=== PATIENT | female | born 1930 | race Caucasian/White ===

== ENCOUNTER 2019-08-26 17:57 | Inpatient (IN) | payer OTHER, BC ==
[~2019-08-26] VITALS: Ht 170.2 cm; Wt 56.9 kg
[~2019-08-26 17:57] MED LIST: ASPIRIN EC81 M1 PO; ATIVAN0.5 MG; ATIVAN0.5 MG PO; BAYER; CELEXA 10 MG TA10 M1 PO; LEVOTHROID PO; LOPRESSOR; LOPRESSOR25 PO; MAXZIDE; POTASSIUM20; SYNTHROID; [UNRECOGNIZED DRUG - OTHER]
[2019-08-26 17:59] VITALS: BP 152/77
[2019-08-26] MEDS ORDERED: CELEXA 10 MG TA10 M1 PO (18:21)
[2019-08-26] MEDS ORDERED: ELIQUIS2.5 MG PO (18:21)
[2019-08-26] MEDS ORDERED: DIBUCAINE30 GM TOP (18:21)
[2019-08-26] MEDS ORDERED: TYLENOL325 MG PO (18:21)
[2019-08-26] MEDS ORDERED: ANUSOL-HC25 MG RECTAL (18:22)
[2019-08-26] MEDS ORDERED: NEURONTIN100 MG PO (18:22)
[2019-08-26] MEDS ORDERED: DULCOLAX STOOL100 M1 PO (18:22)
[2019-08-26] MEDS ORDERED: COZAAR 25 MG TA25 M1 PO (18:23)
[2019-08-26] MEDS ORDERED: LEVO-T25 MCG PO (18:23)
[2019-08-26] MEDS ORDERED: LORAZEPAM 0.50.5 MG PO (18:23)
[2019-08-26] MEDS ORDERED: TOPROL XL25 MG PO (18:24)
[2019-08-26] MEDS ORDERED: MORPHINE SULFAT15 M3 PO (18:27)
[2019-08-26] MEDS ORDERED: TRAMADOL 50 MG50 MG PO (18:28)
[2019-08-26] MEDS ORDERED: MIRALAX119 GM PO (18:28)
--- NOTE | 2019-08-27 05:52 | NUR ---
ARRIVED ON SB FLOOR ACCOMPANIED BY SECURITY AND STAFF FROM ED @ 1999 ON 08/26/19 IN [facility]. TRANSFERRED TO BED 519 A AMBULATING WITH X2 PHYSICAL ASSIST. vs TAKEN AND PATIENT SETTLED INTO BED. REPORTS ANUS PAIN 2/10 AT THIS TIME. A&OX3, ABLE TO REPORT THAT BOTTOM HAS HURT SO BAD THAT SHE WANTED TO END HER LIFE. REPORTS THAT RESIDES WITH DAUGHTER, AND THAT DAUGHTER IS A DOCTOR AND OWNS A CLEANING COMPANY. RECTUM APPEARS PINK AND HAS RESIDUAL CREAM ON IT, PT DOES NOT KNOW WHAT KIND OF OINTMENT IS USED ON THE ANUS. REPORTS OTHER PAIN SUCH RHEUMATISM OF HER HANDS IS HER ONLY OTHER PAIN, BUT IT IS NOT BOTHERING HER NOW. HRRR, S1,S2 NOTED. abd FLAT AND SOFT, ABD SOUNDS NOTED X 4 Q. LUNG SOUNDS NOTED IN ALL [place]. ORDERS OBTAINED FROM DR. VILLALBA AND HOSPITALIST CONSULT ENTERED, ELIZABETH ONTIVEROS ADVISED OF CONSULT. BED IN LOW POSITION, BED ALARM SET, WILL CONTINUE TO MONITOR Q 12 MINUTES FOR PATIENT SAFETY.
[2019-08-27 06:16] LABS: APTT 26.9 Seconds (24.5-32.8); PROTIME 10.7 Seconds (9.3-11.4)
[2019-08-27 06:35] LABS: TSH 1.651 uIU/mL (0.358-3.740)
[2019-08-27 07:00] VITALS: BP 152/77
[2019-08-27 08:00] VITALS: BP 168/87
--- NOTE | 2019-08-27 08:08 | NUR ---
NIGHT NURSE TALKED TO DTR VENECIA GUSTAVO DE LOS SANTOS AND GAVE HER PT CODE. MEDICATION WAS GONE OVER WITH DTR AND VENECIA STATED THAT SHE DOES NOT TAKE NITROGLYCERIN SL. DTR STATED THAT THIS RECTAL PAIN IS IN HER MOM HEAD. CONSENTS SIGNED WITH TWO NURSE WITNESS.
--- NOTE | 2019-08-27 08:50 | NUR ---
PT SITTING ON SIDE OF BED EATING BREAKFAST. PT STATED SHE WAS AT THE HOSPITAL IN [place] AND IT WAS NOT VERY GOOD, SOME NURSES DIDN'T CARE AND PUSHED HER TO DO THINGS FOR HERSELF, SHE STATED IT WASN'T HER FAULT SHE WAS HURTING. PT TALKING WITH ANDRE ONTIVEROS AND DR. AU AT BEDSIDE. PT DOES HAVE A SMALL PIMPLE TO LEFT BUTTOCKS. ANDRE ONTIVEROS LOOKED AT SKIN. PT STATED THAT HER BUTTOCKS PAIN TO RECTUM SEEMS BETTER. PT UP WITH WALKER WITH STAND-BY ASSIST.
--- NOTE | 2019-08-27 14:26 | EKG ---
[facility] [place] [address] ELECTROCARDIOGRAM REPORT Name: SAVANAH PLUMMER [facility] IN M.R.#: [id number] Admission: 08/26/19 Attend Phys: Lucian Chaudhry DO Discharge: Date of : [birth year] Report #: [id number] THIS REPORT FOR: cc: JESSICA - No family physician/PCP JESSICA - No family physician/PCP Sage Raza MD [facility] ~ THIS REPORT FOR: //name// [facility] ED Test Date: 2019-08-26 Test Time: 18:06:37 Pat Name: SAVANAH PLUMMER Department: Room: [facility] Gender: F Fine Hairer: HECTOR : 1930 Requested By: Jayjay Solorzano Order Number: [id number] MD: Sage Raza Measurements Intervals [place] Rate: 66 P: 47 TX: 165 QRS: -12 QRSD: 82 T: 38 QT: 402 QTc: 422 Interpretive Statements Sinus rhythm RSR' in V1 or V2, right VCD No previous ECG available for comparison Electronically Signed On 08-27-2019 14:25:10 CDT by Sage Raza [email or web address] <ELECTRONICALLY SIGNED> By: Sage Raza MD, [facility] 08/27/19 1425 1806 1806 Sage Raza MD, [facility] /EPI
--- NOTE | 2019-08-27 15:52 | NUR ---
PT WALKING TO NURSES DESK CRYING STATED SHE IS HAVING PAIN TO ABD AT THIS TIME. ASSISTED PT BACK TO ROOM, WILL CHECK ON PAIN MEDICATION.
--- NOTE | 2019-08-27 16:04 | NUR ---
ADM OXYCODONE 5MG PO FOR PAIN TO RECTAL AREA OF 10 ON 1-10 SCALE. PT RUBBING ABD. PT STATED THAT IT'S NOT HER STOMACH. PT CRYING AND UPSET. PT PRAYING TO GOD. PT STATED PAIN IS GETTING BETTER. PT LAUGHING WITH NURSE ABOUT PAIN AND BEING OLDER. PT STATED SHE WILL BE [address] VILLALBA ASSESSING PT PAIN AND STATED HE WILL EVAL HER MEDICATION.
--- NOTE | 2019-08-27 20:18 | NUR ---
Assumed care on 08/27/19 @ 1900, in her room sittin on the bed. Cooperated with assessment, HRRR, S1S2 noted. ABD N x 4 Q. Lung sounds clear to auscultation. Anxious and jumping from topic to topic with rapid speach.
--- NOTE | 2019-08-27 22:38 | NUR ---
COMPLIANT WITH MEDICATION. ASKED REPEATEDLY WHEN SHE GETS MORE MEDICATION. SETTLED INTO RM#[id number].
[2019-08-27 22:43] VITALS: BP 157/94
--- NOTE | 2019-08-28 06:28 | NUR ---
SLEPT 7.8 HOURS OVERNIGHT.
--- NOTE | 2019-08-28 06:29 | NUR ---
REPORTED HX OF SHINGLES 6 YEARS AGO. PATIENT HAS PIMPLE LIKE ERUPTIONS ON THE SACRUM AREA OF THE LOWER BACK, THAT SHE REPORTS ARE PAINFUL. BM @ 0500 NOTED TO BE SOFT AND SMALL. RECTAL PAIN REPORTED. SCHEDULED GABAPENTIN PROVIDED @ 05:10. REPORTS SIGNIFICANT PAIN IN RECTUM AND LOWER BACK. RUMINATING ON PAST SORROW AND FOCUSING ON PAIN ISSUES.
[2019-08-28 10:25] VITALS: BP 150/33
[2019-08-28 10:34] VITALS: BP 150/83
--- NOTE | 2019-08-28 12:22 | NUR ---
1220 RESUMMED CARE FROM OVERNIGHT SHIFT THIS AM, PATIENT IN ROOM QUIET STATES ON OF THE PATIENTS SCARE HER. PATIENT ATE BREAKFAST AND TOOK MEDICATION WITHOUT INCIDENCE. PATIENTS ABDOMEN SOFT ROUND BOWEL SOUNDS PRESENT IN ALL 4 QUADRANTS. LUNGS CLEAR PATIENT DENIES SI/HI/AH/VH AT PRESENT, PATIENT STATES SHE DOES NOT UNDERSTAND WHY HER DAUGHTER SENT HER HERE. PATIENT QUIET CALM NO INTERACTIONS WITH OTHER PATIENTS. PATIENT COMPLAINED ABOUT HER BACK FEET STATING THEY ARE TINGLING. PATIENT HAS HISTORY OF SHINGLES I RUBBED SOME OF THE LIDOCAIN CREAM ON HER BACK AND FEET. WILL CONTINUE TO MONITOR PATIENT FOR BEHAVIORS AND SAFETY.
[2019-08-28 19:27] VITALS: BP 160/90
[2019-08-28 19:44] VITALS: BP 160/90
--- NOTE | 2019-08-28 21:21 | NUR ---
Care assumed of patient at 1915: Patient resting in bed at start of shift. Easily arousable. Calm, pleasant and cooperative. Alert and oriented x3 with occasional confusion and forgetfulness observed. Patient smiling at times, interactive. Patient has requested her PRN Oxycodone several times since beginning of shift. Education has been completed several times regarding the last dose she received and what time her next dose is available. Lidocaine applied topically to assist with pain management. Also assisted patient lay on her side to relieve pressure from buttock. Patient denies anxiety and depression at this time. No s/s of anxiety or depression observed. Patient came to the dayroom for HS snack. Ate 50% ice cream cup then retired back to bed. Patient denies SI/HI/AH/VH. No s/s of delusional or paranoia behaviors. Patient did report pain rated 4/10 to rectum and reports "this is the best it has felt". Patient has vesiclular areas to left buttock. Skin intact, denies pain, burning or itching. Patient took HS medication whole without difficulty. Patient was able to fall asleep without difficulty and is resting quietly at this time.
[2019-08-29 08:39] VITALS: BP 171/97
--- NOTE | 2019-08-29 11:14 | NUR ---
Sw spoke with pt's daughter and Dr quintanilla via telephone. Pt's daughter will visit on Sunday at 3pm. Sw called and reported this to Desk Reporter and provided this inofrmaiton to weekend SW and US. Pt;s daughter wanted to d/c her mom home with weekend but after dscussing concerns agreed to have her stay through the weekend and comply with meds changes.
--- NOTE | 2019-08-29 11:55 | NUR ---
0700 ASSUMED CARE OF PATIENT, PATIENT SITTING ON KALANI OF BED. 0720 PATIENT STATES PAIN DECREASED TO A 2 AT THAT TIME. PATIENT IS PLEASANT AND COOPERATIVE. PATIENT TELLING ARTIFICIAL CANDY MAKER ABOUT HER HOME AND LIVING WITH DAUGHTER. 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 PATIENT GOAL IS TO GO HOME WITH DAUGHTER. PATIENT CONCERN IS THERE WAS A BOOK SENT TO HER BUT IT GOT LOST. ARTIFICIAL CANDY MAKER WILL CHECK HER INVENTORY LIST. PATIENT STATES SHE IS WORRIED ABOUT GOING OUT TO EAT BREAKFAST DUE TO ALL THE NOISE AND A MAN COMING UP TO HER ALL THE TIME. BEDSIDE TABLE TO ROOM AND BREAKFAST TAKEN TO ROOM FOR PATIENT. PATIENT HAPPY ABOUT BEING ABLE TO EAT IN ROOM. MEDICATION TAKEN WHOLE WITHOUT DIFFICULTY. PATIENT A+O X4. LIDOCAIN TO RECTUM FOR C/O PAIN. 1150 TYLENOL 650 MG GIVEN FOR PAIN, PATIENT RATES PAIN 5 ON NUMERIC PAIN SCALE. WILL CONTINUE TO OBSERVE.
--- NOTE | 2019-08-29 17:17 | NUR ---
1710 OXYCODONE 5MG PO GIVEN FOR C/O PAIN RATING AT A 10 ON NUMERIC PAIN SCALE. PATIENT EATING DINNER IN ROOM. WILL CONTINUE TO OBSERVE.
[2019-08-29 19:25] VITALS: BP 96/45
--- NOTE | 2019-08-29 21:54 | H ---
[facility] [place] [address] HISTORY AND PHYSICAL Name: SAVANAH PLUMMER Room #: 526B-B ADM IN M.R.#: [id number] Admission: 08/26/19 Attend Phys: Lucian Chaudhry DO Discharge: Date of : [birth year] Report #: [id number] THIS REPORT FOR: cc: JESSICA - No family physician/PCP FAM - No family physician/PCP Lucian Chaudhry DO ~ CC: Lucian LOPEZ physician/PCP DATE OF SERVICE: 08/26/2019 INPATIENT PSYCHIATRIC EVALUATION PRIMARY TEAM ATTENDING PHYSICIAN: Lucain Chaudhry DO. TEXTILE FINISHER: Lucian Meraz M.D. REASON FOR ADMISSION: Passive suicidal ideation, concern for ability to care for herself, pain with probable nonphysiologic basis. SOURCES OF INFORMATION: Extensive records from [facility] and [facility], evaluation by Dr. Smith, interview with the patient, Emergency Room records here in [place] which enhanced up COVID-19 screening was done. HISTORY OF PRESENT ILLNESS: This is an 89-year-old female, [place], who immigrated to the [place] via [place] in her early 40s, which would equate to the early 1970s. The patient lives with her daughter and son-in-law. Her daughter is Shaji Esteban who is a very prominent veterinary in [place], [place]. The patient has significant medical history including dementia without behavioral disturbance. 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 She has been retired for quite some time. She still does [employer] art as a hobby. Dr. Smith did her evaluation on the at [facility]. was the hospitalist there. She told Dr. Smith that she has been in almost constant pain since admission. She states it fluctuates from bad to worse. She endorsed having associated constipation. She has not found that many medications actually relieved the pain. She states she had requested help in various ways, but denies that anyone is assisting her, hence her frustration, helplessness in my belief. She states that she is unable to have her basic needs met. She states that she is unable to handle this anymore. She denied having any current or prior mental health issues. She appears to Dr. Smith tangential at times during interview. This interestingly was not the case during my interview today. The patient reported having numb feet and being unable to walk. The patient reports having had this problem over the last 5-6 weeks. She saw her situation as futile stating that she may never end up leaving the hospital, she prays to God to make her life [address] [address] HISTORY AND PHYSICAL Name: SAVANAH PLUMMER Room #: 526B-B ADM IN M.R.#: [id number] Admission: 08/26/19 Attend Phys: Lucian Chaudhry DO Discharge: Date of : [birth year] Report #: [id number] short mostly due to the pain. However, she acknowledges that if her pain was adequately treated she would not feel this way. The patient reported Dr. Smith, she was in the hospital in [facility], but did not know specifically which one; she was off 1 day on date, said it was 14, while it was 13. She was oriented to person. The patient identified her date of , but stated her age is 89. She did know she was turning 89 this year with me. At [facility], she reported her mood is depressed. Sleep is poor with initial insomnia. She endorses feeling hopeless, helpless, worthless. Denies feeling guilty. Energy is somewhat decreased. Concentration is poor. Appetite is somewhat decreased. She reports feeling slowed down and endorses anhedonia. She denied manic symptoms. Denied delusions, paranoia. Denied auditory, visual, or tactile hallucinations. She endorses mild anxiety, but denies panic attacks, obsessions, compulsions. Denied flashbacks. She denies physical, sexual abuse history. Interestingly, she is a survivor of World War II; however, she was not in a Concentration camp or brutalized. She evidently was able to live under the radar without material Nazi or communist actions towards her during that period. Initial information from [facility], she was seen in the ER for rectal bleeding. She was noted to be very anxious. She reported a significant amount of pain. She has a history of frontal lobe dementia. She reported abnormal behaviors over the past 4-5 days. A little over a week ago, she had another ER visit due to fall with head injury. At that time, she had a negative CT of the head; however, she had increasing confusion and balance problems. She was admitted for workup for the rectal bleeding. She has a notable history of anxiety, depression as well as hypertension and hypothyroidism. She had only 1 recent medication change. She had various consults during hospitalization including Gastroenterology, PT, OT Oncology and surgery. It was noted that her symptoms became worse from the stock market, was not doing well as well during the COVID-19 crisis, which is still occurring. Her daughter mentioned that the problems began about 6 years ago when the patient had shingles. She may have had similar episodes like this when triggered by increased emotional stress. Appeared to Dr. Smith as though the daughter requested a psychiatric consult for increased anxiety and psychotic symptoms. The patient had been calling the daughter multiple times per day, appearing hysterical during some of the calls. PAST PSYCHIATRIC HISTORY: No past psychiatric hospitalizations the patient reported to me. No formal history of treatment for major depression, bipolar, depression, etc. The patient denies past suicide attempts. She is not seeing an outpatient psychotherapist or psychiatric medication provider. She did acknowledge to Dr. Smith prior diagnosis of mild dementia. PAST MEDICAL HISTORY: Varicose veins, shingles, hypertension, disease of thyroid gland, arthritis. ALLERGIES: NOVOCAIN, PENICILLIN, TETRACYCLINE. [facility] [address] [place] [address] HISTORY AND PHYSICAL Name: SAVANAH PLUMMER Room #: 526B-B ADM IN M.R.#: [id number] Admission: 08/26/19 Attend Phys: Lucian Chaudhry DO Discharge: Date of : [birth year] Report #: [id number] HOME MEDICATIONS: Citalopram 30 mg daily, hydrochlorothiazide 25 mg by mouth daily. PAST MEDICAL HISTORY: Includes Robinson's thyroiditis, history of hyponatremia, ketonuria and also reported portal vein thrombosis. PAST SURGICAL HISTORY: Varicose vein surgery. No smoking, no alcohol use, no recreational drug use. ADDITIONAL HOME MEDICATIONS: Levothyroxine 88 mcg daily, lorazepam 0.5 mg q. 8 hours p.r.n., losartan 100 mg p.o. daily, tramadol. Her medications while at [facility] included Dulcolax, citalopram, clonidine q. 8 hours p.r.n., dibucaine ointment, diphenhydramine capsule, docusate, gabapentin, levothyroxine, Ativan, metoprolol, miconazole, p.r.n. nitroglycerin. ADDITIONAL SOCIAL HISTORY: She has one sibling, her sister. It is interesting how she and her moved to [facility]. She completed some college course work. She was , once and a second time and . She has 2 children, 3 grandchildren, living with daughter and son-in-law. LABORATORY DATA: From [facility] looks like these were done on the , white blood cell count 9.46, H and H 13.8 and 38, platelet count 244. Electrolytes, at that time, she was hyponatremic sodium 121, potassium 3.1, chloride 84, bicarbonate 25, anion gap 12, calcium 9.6, glucose 106, BUN 11, creatinine 0.7. Urinalysis showed some microscopic rbc's, trace ketones. Interestingly, repeat labs on 08/21/2019, sodium improved to 130. It looks like they did some urine lytes, it was 2.1, osmolality 258, magnesium 1.6. Troponin was less than 0.01. INR was 1.0, aPTT 34. PT 13.7. Repeat labs on 08/22/2019 had shown a white count of 7.20, H and H 12.0 and 34, platelet count 188. Sodium was back at 129. 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 Looks like she had an ultrasound venous Doppler done on 08/20/2019 which showed no evidence of DVT. There are quite a few sheets of records from [facility], so I am not going to review them in great detail further. Additional information moving forward to Dr. Tinoco's evaluation in the [place] ER. REVIEW OF SYSTEMS from ER: CONSTITUTIONAL: Denies fever, chills, malaise, unexplained weight change. RESPIRATORY: Denies cough, shortness of breath, hemoptysis or respiratory distress. CARDIOVASCULAR: Denies chest pain, chest pain with exertion or edema. [facility] [address] [place] [address] HISTORY AND PHYSICAL Name: SAVANAH PLUMMER Room #: 526B-B ADM IN M.R.#: [id number] Admission: 08/26/19 Attend Phys: Lucian Chaudhry DO Discharge: Date of : [birth year] Report #: [id number] GASTROINTESTINAL: Denies abdominal pain, nausea, vomiting or diarrhea. GENITOURINARY: Denies burning, frequency or dysuria. MUSCULOSKELETAL: Denies back pain, joint pain, muscle weakness or myalgias. SKIN: Denies rash. NEUROLOGIC: Denies weaknesses, headache or loss of consciousness. other nielson negative Weight 58.51 kg, which is 129 pounds. EKG showed sinus rhythm, rate of 66. Right bundle-branch block, no STEMI. Labs were not done as they had been done at [facility]. I thought they had actually done a set yesterday on the . Let me see if I can find those, which I may not. So, in any event, according to Dr. Tinoco's note the sodium improved to 133, who reviewed them. PHYSICAL EXAMINATION: She has unsafe transfers from sitting to standing. She utilizes a walker. When she is walking, she is okay. I did put her on high risk fall precautions. MENTAL STATUS EXAMINATION: This is a well-developed, frail female appearing stated age. Attention fair. Concentration fair. Speech is normal in rate, volume and tone. Thought process linear and goal directed. Thought content focused on the present. Denied SI or HI. Denied hopelessness, helplessness. Memory known to be impaired. Mood okay. Congruent. Fair range. Denied auditory, visual, or tactile hallucinations. Denied flashbacks, nightmares. Denied sleep difficulty at this time. FORMULATION: An 89-year-old female sent over for passive SI from [facility]. Recent falls, possibly needing higher level of care than she is currently getting. 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 Gait disturbance, abnormal balance. Medical problems include hypertension, portal vein thrombosis, hypothyroidism. PLAN: Evaluate, stabilize, obtain collateral. I reviewed her current meds that were ordered include senna docusate 1 tab b.i.d., polyethylene glycol 17 g b.i.d., losartan 25 mg at bedtime, lorazepam 1 mg at bedtime, 0.5 in the morning, hydrocortisone rectal applied b.i.d., oxycodone 10 mg b.i.d., metoprolol succinate 25 mg b.i.d., famotidine 20 mg p.o. daily, citalopram 30 mg p.o. daily, Eliquis 2.5 mg b.i.d., levothyroxine 88 mcg daily, Neurontin 200 mg t.i.d., p.r.n. nitroglycerin. Evaluate, stabilize, obtain collateral. ESTIMATED LENGTH OF STAY: 10-[address] [address] HISTORY AND PHYSICAL Name: SAVANAH PLUMMER Room #: 526B-B ADM IN M.R.#: [id number] Admission: 08/26/19 Attend Phys: Lucian Chaudhry, Discharge: Date of : [birth year] Report #: [id number] I spoke with her daughter, Shaji Esteban. I gave her my cell number to call me back on. I believe, the patient's DPOA should be enacted. PT and OT consults were already ordered. I added on the AUDELIA to help flush out the areas she needs assistance . I am thinking the patient is going to need to an aide when her daughter, son-in-law are away, as she is needing 24-hour assistance. Time spent on interview, review of records, coordination of care was over 60 minutes. STRENGTHS: She is insured. She has supportive family. Numerous resources. WEAKNESSES: Advancing age, having a neurodegenerative disease. Hold off on further lab work at this time given the extensive workup at [facility]. <ELECTRONICALLY SIGNED> By: Lucian Chaudhry DO 08/29/19 2154 1252 1341 Lucian Chaudhry DO /nt
--- NOTE | 2019-08-30 03:32 | NUR ---
ASSUMED PT CARE AT 1900. PT VERY CONCERNED WITH GETTING HER MEDS ON TIME. PT EXPRESSED AN LARGE AMOUNT OF GRATITUDE WHEN THIS NURSE DID BRING HER MEDS IN. TOOK HER PM MEDS WHOLE WITH WATER. INDEPENDENT IN CARES. ANXIOUS TO GO HOME IN A FEW DAYS. HAS BEEN SLEEPING COMFORTABLY IN BED NEARLY ALL NIGHT, WILL CONTINUE TO MONITOR.
[2019-08-30 09:01] VITALS: BP 156/88
--- NOTE | 2019-08-30 09:48 | NUR ---
0700 ASSUMED CARE OF PATIENT, PATIENT IN BED AT THAT TIME. PATIENT ATE BREAKFAST IN ROOM AM MEDICATIONS TAKEN WITHOUT INCIDENT. PATIENT CONTINUES TO C/O RECTAL PAIN. TYLENOL 650MG PO GIVEN FOR RECTAL PAIN RATING AT A 5. WILL CONTINUE TO MONITOR
--- NOTE | 2019-08-30 10:23 | NUR ---
PATIENT CRYIG IN BEDROOM, PATIENT TALKED WITH HOSPITALIST REGARDING PAIN. DR AU WILL LOOK AT PATIENTS MEDICATION. PATIENT STATES TYLENOL 650MG DID NOT HELP HER. RATES PAIN [address] CARPIO.
--- NOTE | 2019-08-30 12:05 | NUR ---
OXYCODONE 5mg PO GIVEN FOR C/O PAIN IN RECTUM PATIENT RATING AT A 10 ON NUMERIC PAIN SCALE. WILL CONTINUE TO OBSERVE
--- NOTE | 2019-08-30 16:56 | NUR ---
JOHN informed [employer] that patient's daughter will be visiting tomorrow (08/31/19) at 3:00 pm.
--- NOTE | 2019-08-31 02:50 | NUR ---
PATIENT ALERT AND ORIENTED X4. UP ADLIB IN ROOM WITH WALKER. ANXIOUS AND STATES THAT SHE IS IN PAIN TO HER RECTUM. THIS NURSE ADMINISTERED PAIN MEDICATION ALONG WITH EVENING MEDS. PATIENT IS COOPERATIVE WITH CARE AND PLEASANT. RECEIVED A ONE TIME ORDER FOR 25MG OF SEROQUEL - THIS IN ADDITION TO EVENING DOSEAGE. PATIENT HAS BEEN SLEEPING QUIETLY SINCE EARLY IN THE SHIFT. WILL MONITOR.
[2019-08-31 08:27] VITALS: BP 127/49
[2019-08-31 10:12] VITALS: BP 195/100
--- NOTE | 2019-08-31 11:13 | NUR ---
ASSUMED CARE AT 0700 THIS MORNING. SHE GOT UP AND ATE BREAKFAST. DURING THE 0900 MEDICATION PASS, SHE STARTED ASKING FOR HYDROCODONE. SHE WAS GIVEN HER PRN PAIN MEDICATIONS, THE LIDOCAINE CREAM TO HER RECTUM AND A SUPPOSITORY. SHE CONTINUED TO BE TEARFUL ABOUT THE PAIN IN HER RECTUM. IT WAS NOTED SHE HAD PUT TISSUE PAPER ON HER RECTUM BETWEEN THE FOLDS OF HER RECTUM. THIS WAS REMOVED BY THIS RN. THIS RN CONTINUES TO INSTRUCT HER NOT TO RUB THIS AREA HARD, NOT TO RUB OFF THE LIDOCAINE CREAM SO IT CAN WORK. SHE DID TAKE HER REGULAR MEDICATIONS WITHOUT PROBLEMS.
[2019-08-31 20:17] VITALS: BP 138/76
[2019-08-31 21:00] VITALS: BP 138/76
--- NOTE | 2019-09-01 02:33 | NUR ---
PATIENT HAS BEEN PLEASANT THIS SHIFT. SHE HAS BEEN IN HER ROOM ALL EVENING. SHE REQUESTED HER MEDS WHEN SHE WAS READY TO GO TO BED. SHE CONTINUES TO RUMINATE ON HER RECTAL PAIN. SHE DID GET SOME RELIEF FROM THE HYDROCORTISONE CREAM AND LIDOCAINE JELLY THAT WAS APPLIED. PATIENT HAD A SMALL BM YESTERDAY. SHE DENIES PAIN ANYWHERE ELSE. SHE IS A/0 X 3. HER VSS AND PHYSICAL ASSESSMENT WNL. ROUTINE ROUNDS TO ASSESS FOR SAFETY AND STATUS BEING DONE. BED IN LOW POSITION, BED ALARM ON. PATIENT IS AMBULATORY WITH HER WALKER. CONTINUING TO MONITOR. SHE WAS ASKING TONIGHT WHO WILL APPLY HER RECTAL CREAM WHEN SHE GOES HOME. TOLD HER THE DR WILL WORK ALL THAT OUT WHEN HE IS READY TO MAKE DC PLANS FOR HER.
[2019-09-01 07:24] VITALS: BP 152/91
--- NOTE | 2019-09-01 10:31 | NUR ---
SOMATICALLY PREOCCUPIED DURING ANY INTERACTIONS WITH NURSING STAFF-CONVERSATION FOCUSES ON RECTAL PAIN AND IS DIFFICULT TO DISTRACT OFF OF THIS TOPIC-INSISTING THAT MEDICATIONS BE WRITTEN DOWN FOR DAUGHTER STATING "SHE WON'T GIVE ME MY MEDICINE-IF I DON'T GET IT I WILL -SHE HAS TAKEN MY MEDICINE FROM ME BEFORE" UPON INITIAL MED PASS AT APPROX 0850 WAS SLIGHTLY CALMER AND ROOK AM MEDS WITHOUT DIFFICULTY-AT 0930 APPROACHED SEVERAL DIFFERENT NURSING STAFF REQUESTING PAIN MEDICATIONS,TEARFUL,DRAMATIC-"I DIDN'T GET MY PAIN PILLS LIKE NORMAL" OXY IR 5MG PO PRN AT APPROX 1000
--- NOTE | 2019-09-01 11:41 | NUR ---
JOHN contacted Shaji to discuss discharge. No answer. JOHN left ms. SW team will continue to follow pt during her stay on this unit.
[2019-09-01 19:55] VITALS: BP 137/65
[2019-09-01 21:30] VITALS: BP 137/65
--- NOTE | 2019-09-02 04:35 | NUR ---
Assumed pt care at 1900. Pt's A/OX4, VSS. Up with a RW. Denied pain on assessment verbalizing the Percocet was effective, LA ointments applied w/o problems. Denies SI/HI and verbalized looking forward to discharging home to daughter soon. Resting quietly at this time w/o any distress noted, will continue to monitor pt.
[2019-09-02 07:46] VITALS: BP 154/80
--- NOTE | 2019-09-02 12:01 | NUR ---
PRODUCTION ASSEMBLY OPERATOR attempted 1;1 with this patient. 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 She is in good spirits.
--- NOTE | 2019-09-02 14:14 | NUR ---
JOHN and Dr. Chaudhry spoke with Shaji Esteban and provided and update as well as discussed discharge. They agreed upon 09/02 @1300 and there will be a family meeting first. She will also be bringing her Arcadio Esteban for the meeting. JOHN contacted the Er Medical Technician and added them both on the list to come to the unit at that time. SW team will continue to follow pt during her stay on this unit.
[2019-09-02 16:31] VITALS: BP 154/80
[2019-09-02 19:29] VITALS: BP 143/71
--- NOTE | 2019-09-03 02:46 | NUR ---
PATIENT ASSESSED AND WAS SITTING IN ROOM ON HER BED. IS ALERT X 4. SKIN WARM AND DRY. RESP EVEN AND UNLABORED. REQUESTING HER PAIN MED AT 6PM. HS RN GAVE IT TO HER PER REQUEST. WILL BE DISCHARGE IN AM. TAKES MEDICATION WELL. TAKEN PAIN MED FOR RECTAL PAIN FROM HEMORRHOIDS. HAS BEEN VERY COOPERATIVE.MIRALAX GIVEN ALSO. NO SKIN ISSUES NOTED. LUNGS CTA. NO COUGH. DENIES SI/HI/AH/VH. NO S/S OF DELUSION OR PARINOID BEHAVIOR NOTED. CONT PALN OF CARE.SLEEPING WELL.
[2019-09-03 08:43] VITALS: BP 173/85
[2019-09-03] MEDS ORDERED: PERCOCET 5-3251 EACH PO (11:02)
[2019-09-03] MEDS ORDERED: NEURONTIN 300300 M1 PO (11:03)
[2019-09-03] MEDS ORDERED: CELEXA 20 MG TA20 MG PO (11:03)
[2019-09-03] MEDS ORDERED: SEROQUEL 100 M100 M1 PO (11:04)
[2019-09-03] MEDS ORDERED: MIRALAX17 GM PO (11:04)
[2019-09-03] MEDS ORDERED: SENNA-TIME S T1 EACH PO (11:05)
[2019-09-03] MEDS ORDERED: PEPCID20 MG PO (11:05)
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
== END 2019-09-03 13:30 | disposition home or self-care (01) | DRG 57 ==
LOC: ER 17:57 → SBH 19:00 → EROBS 19:00 → SBH 19:30
PROVIDERS: Emergency Medicine; ADMIT Psychiatry & Neurology Psychiatry
DX: G30.9 Alzheimer's disease, unspecified (principal); F02.81 Dementia in other diseases classified elsewhere, unspecified severity, with behavioral disturbance; F01.50 Vascular dementia, unspecified severity, without behavioral disturbance, psychotic disturbance, mood disturbance, and anxiety; I10 Essential (primary) hypertension; E03.9 Hypothyroidism, unspecified; K62.89 Other specified diseases of anus and rectum; F22 Delusional disorders; F32.9 Major depressive disorder, single episode, unspecified; M19.90 Unspecified osteoarthritis, unspecified site; F41.9 Anxiety disorder, unspecified; K59.09 Other constipation; F45.9 Somatoform disorder, unspecified; Z88.1 Allergy status to other antibiotic agents; Z88.0 Allergy status to penicillin; Z88.8 Allergy status to other drugs, medicaments and biological substances; Z86.73 Personal history of transient ischemic attack (TIA), and cerebral infarction without residual deficits; Z79.899 Other long term (current) drug therapy
CPT/HCPCS: 10880

== ENCOUNTER 2020-03-22 13:24 | Emergency (ER) | payer OTHER, BC ==
[~2020-03-22] VITALS: Ht 162.6 cm; Wt 55.3 kg
[~2020-03-22 13:24] MED LIST changes: +ANUSOL-HC25 MG RECTAL; +CELEXA 20 MG TA20 MG PO; +COZAAR 25 MG TA25 M1 PO; +DIBUCAINE30 GM TOP; +DULCOLAX STOOL100 M1 PO; +ELIQUIS2.5 MG PO; +LEVO-T25 MCG PO; +LORAZEPAM 0.50.5 MG PO; +MIRALAX119 GM PO; +MIRALAX17 GM PO; +MORPHINE SULFAT15 M3 PO; +NEURONTIN 300300 M1 PO; +NEURONTIN100 MG PO; +PEPCID20 MG PO; +PERCOCET 5-3251 EACH PO; +SENNA-TIME S T1 EACH PO; +SEROQUEL 100 M100 M1 PO; +TOPROL XL25 MG PO; +TRAMADOL 50 MG50 MG PO; +TYLENOL325 MG PO
[2020-03-22 15:01] LABS: URINE BILIRUBIN NEGATIVE (Negative); URINE BLOOD TRACE (Negative); URINE CLARITY CLEAR; URINE COLOR YELLOW; URINE GLUCOSE-RANDOM* NEGATIVE (Negative); URINE KETONES NEGATIVE (Negative); URINE LEUKOCYTES-REFLEX NEGATIVE (Negative); URINE NITRITE-REFLEX NEGATIVE (Negative); URINE PROTEIN (DIPSTICK) NEGATIVE (Negative); URINE SPECIFIC GRAVITY 1.015 (1.005-1.035); URINE UROBILINOGEN 0.2 E.U./dl (0.2-1.0)
[2020-03-22] MEDS ORDERED: SYNTHROID88 MC1 PO (15:24)
[2020-03-22 15:28] LABS: ABSOLUTE NEUTROPHILS 4.7 thou/uL (1.4-8.2); BASOPHILS 0.5 % (0.0-2.0); EOSINOPHILS 1.6 % (0.0-3.0); HEMATOCRIT 45.6 % (37.0-47.0); HEMOGLOBIN 14.8 gm/dL (12.0-15.0); LYMPHOCYTES 42.1 % (24.0-44.0); MCHC 32.5 g/dL (28.0-37.0); MCV 92.2 fL (80.0-100.0); MONOCYTES 6.5 % (1.0-8.0); PLATELET COUNT 197 thou/uL (150-400); POLYS 49.3 % (36.0-66.0); RBC 4.94 mil/uL (4.20-5.00); RDW 13.3 % (10.5-14.5); WBC 9.6 thou/uL (4.0-11.0)
[2020-03-22 15:41] LABS: CALCIUM 9.7 mg/dL (8.5-10.1); CREATININE 1.1 mg/dL (0.6-1.0)
[2020-03-22 15:49] LABS: ALBUMIN 4.1 g/dL (3.4-5.0); TOTAL BILIRUBIN 0.4 mg/dL (0.2-1.0); TOTAL PROTEIN 7.3 g/dL (6.4-8.2)
[2020-03-22 16:06] LABS: APTT 25.8 Seconds (24.5-32.8); D-DIMER 0.29 ug/mLFEU (0.19-0.50); PROTIME 10.1 Seconds (9.3-11.4)
--- NOTE | 2020-03-22 16:17 | EKG ---
[facility] [place] [address] ELECTROCARDIOGRAM REPORT Name: SAVANAH PLUMMER Room #: REG [facility].#: [id number] Admission: 03/22/20 Attend Phys: Discharge: Date of : [birth year] Report #: [id number] THIS REPORT FOR: cc: Inge Bustamante,Jaswant Campos MD [facility] ~ THIS REPORT FOR: //name// [facility] ED Test Date: 2020-03-22 Test Time: 16:12:51 Pat Name: SAVANAH PLUMMER Department: Room: Gender: F Audio Visual Manager: esheets : 1930 Requested By: Kayla Bishop Order Number: [id number] MD: Jaswant Orellana Measurements Intervals [place] Rate: 87 P: 24 PA: 157 QRS: -14 QRSD: 89 T: 25 QT: 384 QTc: 462 Interpretive Statements Sinus rhythm Ventricular premature complex Compared to ECG 08/26/2019 18:06:37 Ventricular premature complex(es) now present Electronically Signed On 03-22-2020 16:17:16 SOLE LEVELER by Jaswant Orellana [email or web address] <ELECTRONICALLY SIGNED> By: Jaswant Orellana MD, FACC 03/22/20 1617 11 11 Jaswant Orellana MD, [facility] /EPI
[2020-03-22] MEDS ORDERED: CARDIZEM CD120 MG PO (16:34)
[2020-03-22 16:42] VITALS: BP 144/78
== END 2020-03-22 16:51 | disposition home or self-care (01) ==
LOC: ER 13:24
PROVIDERS: Physician Assistant
DX: I10 Essential (primary) hypertension (principal); E03.9 Hypothyroidism, unspecified; Z79.899 Other long term (current) drug therapy; Z88.0 Allergy status to penicillin; Z88.1 Allergy status to other antibiotic agents; Z88.8 Allergy status to other drugs, medicaments and biological substances

== ENCOUNTER 2020-08-03 10:42 | Inpatient (IN) | payer OTHER, BC ==
[~2020-08-03] VITALS: Ht 162.6 cm; Wt 64.0 kg
[~2020-08-03 10:42] MED LIST changes: +CARDIZEM CD120 MG PO; +SYNTHROID88 MC1 PO
[2020-08-03 10:46] VITALS: BP 168/101
[2020-08-03 11:31] LABS: ABSOLUTE NEUTROPHILS 3.2 thou/uL (1.4-8.2); BASOPHILS 0.5 % (0.0-2.0); EOSINOPHILS 2.2 % (0.0-3.0); HEMATOCRIT 46.1 % (37.0-47.0); LYMPHOCYTES 49.5 % (24.0-44.0); MCH 30.2 pg (26.0-34.0); MCHC 32.6 g/dL (28.0-37.0); MCV 92.7 fL (80.0-100.0); PLATELET COUNT 204 thou/uL (150-400); POLYS 42.8 % (36.0-66.0); RBC 4.98 mil/uL (4.20-5.00); RDW 13.4 % (10.5-14.5); WBC 7.5 thou/uL (4.0-11.0)
[2020-08-03 11:40] LABS: ANION GAP 9 mmol/L (7-16); BUN 16 mg/dL (7-18); CALCIUM 9.4 mg/dL (8.5-10.1); CHLORIDE 104 mmol/L (98-107); CO2 27 mmol/L (21-32); GLUCOSE 116 mg/dL (74-106); POTASSIUM 3.9 mmol/L (3.5-5.1); SODIUM 140 mmol/L (136-145)
[2020-08-03 11:48] LABS: TROPONIN-I <0.06 ng/mL (<0.06)
[2020-08-03 12:34] LABS: URINE BILIRUBIN NEGATIVE (Negative); URINE BLOOD 1+ (Negative); URINE CLARITY CLEAR; URINE COLOR YELLOW; URINE GLUCOSE-RANDOM* NEGATIVE (Negative); URINE KETONES NEGATIVE (Negative); URINE LEUKOCYTES-REFLEX NEGATIVE (Negative); URINE NITRITE-REFLEX NEGATIVE (Negative); URINE PROTEIN (DIPSTICK) NEGATIVE (Negative); URINE SPECIFIC GRAVITY <= 1.005 (1.005-1.035); URINE UROBILINOGEN 0.2 E.U./dl (0.2-1.0)
[2020-08-03 12:56] LABS: CASTS None Seen /LPF (None Seen); SQUAMOUS 0-3 Few /LPF (0-3)
[2020-08-03 12:57] LABS: BACTERIA-REFLEX None Seen /HPF (None Seen); CRYSTALS None Seen /LPF (None Seen); URINE RBC 0-2 Rare /HPF (0-2); URINE WBC-REFLEX None Seen /HPF (0-5)
--- NOTE | 2020-08-03 13:08 | EKG ---
[place] [address] [address] [facility] [employer] [place] [address] ELECTROCARDIOGRAM REPORT Name: SAVANAH PLUMMER [id number] Admission: 08/03/20 Attend Phys: Discharge: Date of : [birth year] Report #: [id number] [facility] ED Test Date: 2020-08-03 Test Time: 11:04:08 Pat Name: SAVANAH PLUMMER Department: Room: Gender: F Petrology Teacher: CECY : 1930 Requested By: John Steward Order Number: [id number] MD: Jaswant Orellana Measurements Intervals [place] Rate: 86 P: 48 RI: 191 QRS: -2 QRSD: 82 T: 56 QT: 400 QTc: 479 Interpretive Statements Sinus rhythm Compared to ECG 03/22/2020 16:12:51 Ventricular premature complex(es) no longer present Electronically Signed On 08-03-2020 13:08:03 CDT by Jaswant Orellana [email or web address] <ELECTRONICALLY SIGNED> By: Jaswant Orellana MD, [facility] 08/03/20 1308 1104 1104 Jaswant Orellana MD, FACC /EPI
[2020-08-03 14:35] VITALS: BP 168/101
[2020-08-03 15:24] VITALS: BP 171/100
--- NOTE | 2020-08-03 17:24 | NUR ---
PATIENT ADMIT TO UNIT AT 1510 FROM ER. A/O X4. FORGETFUL. DENIES PAIN. AMBULATED IN ROOM GAIT STEADY. BED ARLRM ON. WILL KEEP MONITOR.
[2020-08-03 19:23] VITALS: BP 180/98
[2020-08-04 00:03] VITALS: BP 121/81
[2020-08-04 03:46] VITALS: BP 156/89
--- NOTE | 2020-08-04 05:40 | NUR ---
Pt. stated she slept for few hours. Burst of tachycardia when she got up to use the bathroom last night , asymptomatic. Another episode of tachcardia while lab drawing blood this am , asymptomatic. SALES REPRESENTATIVE M[employer]QU[employer] notified , labs pending. Denies being short of breath and denies any pain. COVID PCR negative results called to SALES REPRESENTATIVE MALT [employer]QUORS and rooming house keeper.
[2020-08-04 06:04] LABS: HEMATOCRIT 42.2 % (37.0-47.0); MCH 30.6 pg (26.0-34.0); MCHC 33.2 g/dL (28.0-37.0); MCV 92.2 fL (80.0-100.0); PLATELET COUNT 196 thou/uL (150-400); RBC 4.58 mil/uL (4.20-5.00); RDW 13.6 % (10.5-14.5); WBC 8.4 thou/uL (4.0-11.0)
[2020-08-04 06:14] LABS: CALCIUM 8.9 mg/dL (8.5-10.1); MAGNESIUM 1.5 mg/dL (1.8-2.4); POTASSIUM 3.4 mmol/L (3.5-5.1)
[2020-08-04 07:52] VITALS: BP 173/107
[2020-08-04 09:43] LABS: ABSOLUTE NEUTROPHILS 2.9 thou/uL (1.4-8.2); ATYPICAL LYMPHS 5 %
[2020-08-04 09:48] LABS: ANISOCYTOSIS SLIGHT
--- NOTE | 2020-08-04 12:57 | 2DMMODE ---
[facility] [place] [address] 2 D/M-MODE ECHOCARDIOGRAM Name: SAVANAH PLUMMER Room #: 353-P ADM IN M.R.#: [id number] Admission: 08/03/20 Attend Phys: Lopez Fabian MD Discharge: Date of : [birth year] Report #: [id number] THIS REPORT FOR: cc: Inge Bustamante,Jaswant Campos MD [facility] ~ APPROVED REPORT Study performed: 08/04/2020 10:39:58 EXAM: Comprehensive 2D, Doppler, and color-flow Echocardiogram Patient Location: Bedside Room #: 353 Status: routine BSA: 1.69 HR: 63 bpm BP: 173/115 mmHg Rhythm: NSR Other Information Study Quality: Good Indications Syncope 2D Dimensions IVSd: 8.95 (7-11mm) LVOT Diam: 20.50 (18-24mm) LVDd: 45.91 mm PWd: 8.61 (7-11mm) Ascending Ao: 28.87 (22-36mm) LVDs: 26.67 (25-40mm) Left Atrium: 30.42 (27-40mm) Aortic Root: 27.77 mm IVC: 15.00 mm Volumes Left Atrial Volume (Systole) Single Plane 4CH: 18.07 mL Single Plane 2CH: 40.63 mL LA ESV Index: 18.00 mL/m2 Aortic Valve AoV Peak Elver.: 0.95 m/s AO Peak Gr.: 3.59 mmHg LVOT Max P.84 mmHg LVOT Max V: 0.84 m/s [place] Vmax: 2.94 cm2 [facility] [address] [place] [address] 2 D/M-MODE ECHOCARDIOGRAM Name: SAVANAH PLUMMER Room #: 353-P [facility] IN ..#: [id number] Admission: 08/03/20 Attend Phys: Lopez Fabian MD Discharge: Date of : [birth year] Report #: [id number] Mitral Valve E/A Ratio: 0.5 MV Decel. Time: 216.74 ms MV E Max Elver.: 0.59 m/s MV A Elver.: 1.08 m/s MV PHT: 62.85 ms IVRT: 64.59 ms Pulmonary Valve PV Peak Elver.: 0.66 m/s PV Peak Gr.: 1.72 mmHg Pulmonary Vein P Vein A Dur.: 147.6 msec Tricuspid Valve TR Peak Elver.: 2.54 m/s TR Peak Gr.: 25.81 mmHg PA Pressure: 30.00 mmHg Left Ventricle The left ventricle is normal size. There is normal LV segmental wall motion. There is normal left ventricular wall thickness. The left ventricular systolic function is normal. The left ventricular ejection fraction is within the normal range. LVEF is 55-60%. Grade I - abnormal relaxation pattern. Right Ventricle The right ventricle is normal size. The right ventricular systolic function is normal. Atria The left atrium size is normal. The right atrium size is normal. Aortic Valve The aortic valve is normal in structure. No aortic regurgitation is present. There is no aortic valvular stenosis. Mitral Valve The mitral valve is normal in structure. Trace to mild mitral regurgitation. No evidence of mitral valve stenosis. Tricuspid Valve The tricuspid valve is normal in structure. There is mild tricuspid regurgitation. Estimated PAP 30 mmHg. There is no pulmonary hypertension. [facility] [address] [place] [address] 2 D/M-MODE ECHOCARDIOGRAM Name: SAVANAH PLUMMER Room #: 353-P [facility] IN .R.#: [id number] Admission: 08/03/20 Attend Phys: Lopez Fabian MD Discharge: Date of : [birth year] Report #: [id number] Pulmonic Valve The pulmonary valve is normal in structure. There is no pulmonic valvular regurgitation. Great Vessels The aortic root is normal in size. IVC is normal in size and collapses >50% with inspiration. Pericardium There is no pericardial effusion. <Conclusion> Normal left ventricular size/wall thickness Ejection fraction 55-60% None normal right ventricular size/function Normal atrial size Color-flow Doppler study was performed of the aortic/mitral/tricuspid/pulmonary valve Normal aortic valve structure and function Trace mitral valve insufficiency Mild tricuspid valve insufficiency Pulmonary systolic pressure estimated 30 mmHg No pericardial effusion Normal aortic root size. <ELECTRONICALLY SIGNED> By: Jaswant Orellana MD, FACC 08/04/20 1257 1257 1257 Jaswant Orellana MD, FACC /INF
[2020-08-04 15:04] VITALS: BP 151/101
[2020-08-04 19:55] VITALS: BP 115/74
[2020-08-05 05:00] VITALS: BP 101/61
--- NOTE | 2020-08-05 06:26 | NUR ---
PT RESTED COMFORTABLY ALL SHIFT. NO COMPLAINTS OR ISSUES. VSS AND TELE SHOWS SR. HOURLY ROUNDING.
[2020-08-05 07:49] VITALS: BP 151/82
[2020-08-05] MEDS ORDERED: DILTIAZEM 24HR180 M1 PO (08:46)
[2020-08-05] MEDS ORDERED: METOPROLOL TART25 MG PO (08:46)
[2020-08-05] MEDS ORDERED: DIGOX125 MCG PO (08:47)
[2020-08-05 14:50] VITALS: BP 151/82
--- NOTE | 2020-08-05 14:55 | NUR ---
discussed meds/discharge instruction with daughter. iv dc'd, hall monitor removed. pt out to vehicle with Rosario Todd, daughter in law transporting pt home.
== END 2020-08-05 16:10 | disposition home or self-care (01) | DRG 308 ==
LOC: ER 10:42 → 3W 13:39 → EROBS 13:39 → 3W 14:44
PROVIDERS: Nurse Practitioner; ADMIT Hospitalist; ATTEND Hospitalist
DX: I48.0 Paroxysmal atrial fibrillation (principal); I81 Portal vein thrombosis; R55 Syncope and collapse; I16.0 Hypertensive urgency; Z20.822 Contact with and (suspected) exposure to COVID-19; E03.9 Hypothyroidism, unspecified; F41.9 Anxiety disorder, unspecified; F32.9 Major depressive disorder, single episode, unspecified; M06.9 Rheumatoid arthritis, unspecified; I10 Essential (primary) hypertension; K59.09 Other constipation; Z86.73 Personal history of transient ischemic attack (TIA), and cerebral infarction without residual deficits; Z79.01 Long term (current) use of anticoagulants; Z88.1 Allergy status to other antibiotic agents; Z88.0 Allergy status to penicillin
CPT/HCPCS: 10879

== ENCOUNTER → 2020-08-11 | Outpatient (CLI) | payer OTHER, BC ==
[~2020-08-11] MED LIST changes: +DIGOX125 MCG PO; +DILTIAZEM 24HR180 M1 PO; +METOPROLOL TART25 MG PO
== END ==
LOC: SJCVC 13:45
PROVIDERS: ATTEND Internal Medicine
DX: Z13.220 Encounter for screening for lipoid disorders (principal); I10 Essential (primary) hypertension; E03.9 Hypothyroidism, unspecified; K59.00 Constipation, unspecified; Z88.0 Allergy status to penicillin; Z88.8 Allergy status to other drugs, medicaments and biological substances; Z79.899 Other long term (current) drug therapy

== ENCOUNTER → 2020-11-10 | Outpatient (CLI) | payer OTHER, BC | LOC: SJCVC 12:55 | PROVIDERS: ATTEND Internal Medicine | DX: I10 Essential (primary) hypertension (principal); E03.9 Hypothyroidism, unspecified; K59.00 Constipation, unspecified; R42 Dizziness and giddiness; R53.1 Weakness; R53.83 Other fatigue; R11.0 Nausea; I48.91 Unspecified atrial fibrillation; R60.0 Localized edema; Z88.0 Allergy status to penicillin; Z88.8 Allergy status to other drugs, medicaments and biological substances; Z79.899 Other long term (current) drug therapy ==

== ENCOUNTER → 2020-12-08 | Outpatient (CLI) | payer OTHER, BC | LOC: SJCVC 13:06 | PROVIDERS: ATTEND Internal Medicine | DX: I48.0 Paroxysmal atrial fibrillation (principal); I10 Essential (primary) hypertension; E03.9 Hypothyroidism, unspecified; K59.00 Constipation, unspecified; R60.0 Localized edema; R53.83 Other fatigue; Z88.0 Allergy status to penicillin; Z88.8 Allergy status to other drugs, medicaments and biological substances; Z79.899 Other long term (current) drug therapy; Z86.69 Personal history of other diseases of the nervous system and sense organs ==